=== PATIENT | male | born 1980 | race Caucasian/White ===

== ENCOUNTER 2022-11-13 16:04 | Emergency (ER) | payer MEDICAID ==
[~2022-11-13] VITALS: Ht 172.7 cm; Wt 113.4 kg
[2022-11-13 16:25] VITALS: BP_SYST 134; PULSE 87; RESP 16; TEMP 97.2; O2SAT 98
[2022-11-13] MEDS ORDERED: INDO50CA90 PO (19:12)
[2022-11-13] MEDS ORDERED: DICL20GE TP (19:12)
== END 2022-11-13 19:38 | disposition home or self-care (01) ==
LOC: SED 16:04
DX: M10.071 Idiopathic gout, right ankle and foot (principal); M10.9 Gout, unspecified; Z79.899 Other long term (current) drug therapy
CPT/HCPCS: 36415; 84550; 93971; 99284